=== PATIENT | female | born 1985 | race Caucasian/White ===

== ENCOUNTER → 2019-02-03 | Outpatient (CLI) | payer SELFPAY ==
--- NOTE | 2019-02-03 13:19 | Diagnostic Imaging Report ---
PROCEDURE: CT urinary tract, rule out kidney stone. TECHNIQUE: Multiple contiguous axial images were obtained through the abdomen and pelvis without the use of intravenous contrast. Auto Exposure Controls were utilized during the CT exam to meet ALARA standards for radiation dose reduction. INDICATION: Bilateral flank pain and hematuria. COMPARISON: No prior studies are available for comparison. FINDINGS: The lung bases are clear. Liver and gallbladder are unremarkable. No biliary duct dilatation is seen. Pancreas and spleen are unremarkable. The right adrenal gland is unremarkable. There appears to be a low-density mass involving the left adrenal gland measuring 2.3 cm. This is most suggestive of an adenoma. No definite renal calculi or hydronephrosis is identified. No definite ureteral calculi are detected. Aorta is non-aneurysmal. The small and large bowel loops are normal in caliber. No obstruction is seen. No inflammatory changes are identified. There is minimal free fluid in the pelvis which is likely physiologic. No loculated fluid collection is identified. The bladder is unremarkable. IMPRESSION: Essentially unremarkable noncontrast CT of the abdomen and pelvis. No urinary tract calculi or obstruction is seen. No acute features identified. Dictated by: Dictated on workstation # [id number]
== END ==
LOC: RAD FS 13:05
PROVIDERS: ATTEND Clinical Nurse Specialist Emergency
DX: R31.9 Hematuria, unspecified (principal); R10.9 Unspecified abdominal pain
CPT/HCPCS: 74176